=== PATIENT | female | born 1990 | race Caucasian/White ===

== ENCOUNTER 2018-12-11 17:40 | Emergency (ER) | payer SELFPAY ==
--- NOTE | 2018-12-11 18:37 | RAD REPORT ---
EXAM DESCRIPTION: CT - CTHCSPWOC - 12/11/2018 6:22 pm CLINICAL HISTORY: Headache, asymmetric pupils COMPARISON: None. TECHNIQUE: Axial 5 mm thick images of the head were obtained. Axial 2 mm thick images of the cervic al spine were obtained with sagittal and coronal reconstruction images generated and reviewed. All CT scans are performed using dose optimization technique as appropriate and may include automated exposure control or mA/KV adjustment according to patient size. FINDINGS: No intracranial hemorrhage, mass, edema or acute intracranial finding. No suspicion for acute infarct ion. No extra-axial fluid collections. Mastoid air cells and paranasal sinuses are clear. No globe or orbit abnormality seen. Cervical body height and alignment are normal. No disk space narrowing. No fracture or acute bony abn ormality. No paraspinal mass or hematoma. Hardware is in place in the mandible prior fracture repair. IMPRESSION: Negative CT head examination for acute or significant finding. Negative CT cervical spine examination for acute or significant finding.
--- NOTE | 2018-12-11 18:45 | EDPHYS ---
Physician Documentation [facility] Name: Rosario Mcgrath Age: 28 yrs Sex: Female : 1990 Arrival Date: 12/11/2018 Time: 17:45 Bed 18 Private MD: ED Physician Choco Brito HPI: 12/11 18:30 This 28 yrs old Female presents to ER via Ambulatory with complaints of Eye snw Problem. 18:30 The patient is experiencing unequal pupils, caused by an unknown mechanism. Onset: The snw symptoms/episode began/occurred suddenly. Duration: the symptoms are intermittent. Associated signs and symptoms: Pertinent positives: None. Severity of symptoms: At their worst the symptoms were very mild. It is unknown whether or not the patient has had similar symptoms in the past. It is unknown whether or not the patient has recently seen a physician. pt in rehab s/p detox. 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 - Ebola Screening: : Patient negative for fever greater than or equal to 101.5 degrees Fahrenheit, and additional compatible Ebola Virus Disease symptoms. ROS: 18:29 Constitutional: Negative for fever, chills, and weight loss, Eyes: Negative for injury, snw pain, redness, and discharge, friends have noted that pupils are unequal "at times" ENT: Negative for injury, pain, and discharge, Neck: Negative for injury, pain, and swelling, Cardiovascular: Negative for chest pain, palpitations, and edema, Respiratory: Negative for shortness of breath, cough, wheezing, and pleuritic chest pain, Abdomen/GI: Negative for abdominal pain, nausea, vomiting, diarrhea, and constipation, Back: Negative for injury and pain, : Negative for injury, bleeding, discharge, and swelling, MS/Extremity: Negative for injury and deformity, Skin: Negative for injury, rash, and discoloration, Neuro: Negative for headache, weakness, numbness, tingling, and seizure, Psych: Negative for depression, anxiety, suicide ideation, homicidal ideation, and hallucinations. Exam: 18:28 Constitutional: This is a well developed, well nourished patient who is awake, alert, snw and in no acute distress. Head/Face: Normocephalic, atraumatic. ENT: Nares patent. No nasal discharge, no septal abnormalities noted. Tympanic membranes are normal and external auditory canals are clear. Oropharynx with no redness, swelling, or masses, exudates, or evidence of obstruction, uvula midline. Mucous membranes moist. Neck: Trachea midline, no thyromegaly or masses palpated, and no cervical lymphadenopathy. Supple, full range of motion without nuchal rigidity, or vertebral point tenderness. No Meningismus. Chest/axilla: Normal chest wall appearance and motion. Nontender with no deformity. No lesions are appreciated. Cardiovascular: Regular rate and rhythm with a normal S1 and S2. No gallops, murmurs, or rubs. Normal PMI, no JVD. No pulse deficits. Respiratory: Lungs have equal breath sounds bilaterally, clear to auscultation and percussion. No rales, rhonchi or wheezes noted. No increased work of breathing, no retractions or nasal flaring. Abdomen/GI: Soft, non-tender, with normal bowel sounds. No distension or tympany. No guarding or rebound. No evidence of tenderness throughout. Back: No spinal tenderness. No costovertebral tenderness. Full range of motion. Skin: Warm, dry with normal turgor. Normal color with no rashes, no lesions, and no evidence of cellulitis. MS/ Extremity: Pulses equal, no cyanosis. Neurovascular intact. Full, normal range of motion. Neuro: Awake and alert, GCS 15, oriented to person, place, time, and situation. Cranial nerves II-XII grossly intact. Motor strength 5/5 in all extremities. Sensory grossly intact. Cerebellar exam normal. Normal gait. Psych: Awake, alert, with orientation to person, place and time. Behavior, mood, and affect are within normal limits. 18:28 Eyes: Pupils: right pupil is approximately 4 mm(s), left pupil is approximately 2 mm(s), bilateral reactive. Vital Signs: 17:48 BP 119 / 79; Pulse 82; Resp 16; Temp 98.8; Pulse Ox 99% ; Weight 82.55 kg; Height 4 ft. sv 11 in. (149.86 cm); 18:55 BP 116 / 77; Pulse 66; Resp 16; Pulse Ox 98% on R/A; rb1 17:48 Body Mass Index 36.76 (82.55 kg, 149.86 cm) sv MDM: 17:55 Patient medically screened. snw 18:51 Data reviewed: vital signs, nurses notes. Data interpreted: Pulse oximetry: on room air snw is 99 %. Interpretation: normal. Counseling: I had a detailed discussion with the patient and/or guardian regarding: the historical points, exam findings, and any diagnostic results supporting the discharge/admit diagnosis, radiology results, to return to the emergency department if symptoms worsen or persist or if there are any questions or concerns that arise at home. 12/11 18:03 Order name: CT Head C Spine; Complete Time: 18:44 ss Administered Medications: No medications were administered Disposition: 12/12 07:45 Co-signature as Attending Physician, Choco Brito MD. Disposition: 12/11/18 18:45 Discharged to Home. Impression: Anisocoria. - Condition is Stable. - Medication Reconciliation Form, Thank You Letter, Antibiotic Education, Prescription Opioid Use form. - Follow up: Private Physician; When: 1 week; Reason: Recheck today's complaints, Continuance of care, Re-evaluation by your physician. Follow up: Emergency Department; When: As needed; Reason: Worsening of condition. Signatures: Dispatcher [employer] [facility] Marilu Trevizo RN RN Flor Walsh, MACHINE STRIPPER-C MACHINE STRIPPER-Csnw Hiral Frost RN RN Choco Brewer MD MD Corrections: (The following items were deleted from the chart) 12/11 19:05 18:45 12/11/2018 18:45 Discharged to Home. Impression: Anisocoria. Condition is Stable. rb1 Forms are Medication Reconciliation Form, Thank You Letter, Antibiotic Education, Prescription Opioid Use. Follow up: Private Physician; When: 1 week; Reason: Recheck today's complaints, Continuance of care, Re-evaluation by your physician. Follow up: Emergency Department; When: As needed; Reason: Worsening of condition. snw
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
[2018-12-11 19:37] VITALS: BP 119/79; TEMP 98.8; O2SAT 99
== END 2018-12-11 19:05 | disposition home or self-care (01) ==
LOC: ER 17:40
DX: H57.02 Anisocoria (principal); F17.210 Nicotine dependence, cigarettes, uncomplicated; Z88.8 Allergy status to other drugs, medicaments and biological substances
CPT/HCPCS: 70450; 72125; 99283